=== PATIENT | male | born 1960 | race Caucasian/White ===

== ENCOUNTER 2020-05-26 03:06 | Emergency (ER) | payer OTHER ==
[~2020-05-26] VITALS: Ht 172.7 cm; Wt 74.8 kg
[2020-05-26 03:30] LABS: HEMATOCRIT 40.8 % (42.0-52.0); MCH 31.6 pg (26.0-34.0); MCHC 34.4 g/dL (28.0-37.0); PLATELET COUNT 217 thou/uL (150-400); RBC 4.44 mil/uL (4.50-6.00); RDW 13.1 % (10.5-14.5)
[2020-05-26 03:35] LABS: URINE BILIRUBIN 1+ (Negative); URINE BLOOD 2+ (Negative); URINE CLARITY CLEAR; URINE COLOR YELLOW; URINE GLUCOSE-RANDOM* NEGATIVE (Negative); URINE KETONES 1+ (Negative); URINE LEUKOCYTES-REFLEX NEGATIVE (Negative); URINE NITRITE-REFLEX NEGATIVE (Negative); URINE PROTEIN (DIPSTICK) TRACE (Negative); URINE SPECIFIC GRAVITY 1.025 (1.005-1.035)
[2020-05-26 03:40] LABS: ANION GAP 14 mmol/L (7-16); BUN 32 mg/dL (7-18); CALCIUM 8.5 mg/dL (8.5-10.1); CHLORIDE 99 mmol/L (98-107); CO2 22 mmol/L (21-32); CREATININE 1.5 mg/dL (0.7-1.3); GLUCOSE 134 mg/dL (74-106); POTASSIUM 3.4 mmol/L (3.5-5.1); SODIUM 135 mmol/L (136-145)
[2020-05-26 03:41] LABS: BACTERIA-REFLEX 1-9 Few /HPF (None Seen); CASTS None Seen /LPF (None Seen); CRYSTALS None Seen /LPF (None Seen); MUCUS 0-3 Light strn/LPF (None Seen); SQUAMOUS 0-3 Few /LPF (0-3); URINE WBC-REFLEX 0-5 Rare /HPF (0-5)
[2020-05-26 03:44] LABS: AMP/METHAMP POSITIVE (Negative); BARBITURATES Negative (Negative); BENZODIAZEPINES Negative (Negative); COCAINE Negative (Negative); METHADONE Negative (Negative); OPIATES Negative (Negative); PCP Negative (Negative)
[2020-05-26 03:51] LABS: ALBUMIN 3.7 g/dL (3.4-5.0); LIPASE 210 U/L (73-393); SGOT 26 U/L (15-37); SGPT 34 U/L (30-65); TOTAL BILIRUBIN 0.8 mg/dL (0.2-1.0); TOTAL PROTEIN 7.1 g/dL (6.4-8.2); TROPONIN-I <0.06 ng/mL (<0.06)
[2020-05-26 04:36] LABS: ABSOLUTE NEUTROPHILS 2.6 thou/uL (1.4-8.2)
[2020-05-26 04:37] LABS: PLATELET ESTIMATE NORMAL
--- NOTE | 2020-05-26 08:12 | EKG ---
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
[2020-05-26 08:30] VITALS: BP 121/80
== END 2020-05-26 08:40 | disposition home or self-care (01) ==
LOC: ER 03:06
PROVIDERS: Emergency Medicine
DX: F15.10 Other stimulant abuse, uncomplicated (principal); R07.9 Chest pain, unspecified; R41.0 Disorientation, unspecified; R45.1 Restlessness and agitation; F12.90 Cannabis use, unspecified, uncomplicated; F17.210 Nicotine dependence, cigarettes, uncomplicated

== ENCOUNTER 2020-06-26 12:06 | Emergency (ER) | payer OTHER ==
[~2020-06-26] VITALS: Ht 172.7 cm; Wt 70.3 kg
[2020-06-26 12:28] LABS: HEMOGLOBIN 12.5 gm/dL (14.0-18.0)
[2020-06-26 12:30] LABS: ABSOLUTE NEUTROPHILS 3.1 thou/uL (1.4-8.2); BASOPHILS 0.2 % (0.0-2.0); EOSINOPHILS 3.5 % (0.0-3.0); HEMATOCRIT 36.1 % (42.0-52.0); LYMPHOCYTES 26.3 % (24.0-44.0); MCH 32.1 pg (26.0-34.0); MCHC 34.6 g/dL (28.0-37.0); MCV 92.7 fL (80.0-100.0); MONOCYTES 9.1 % (1.0-8.0); PLATELET COUNT 232 thou/uL (150-400); POLYS 60.9 % (36.0-66.0); RBC 3.89 mil/uL (4.50-6.00); RDW 13.1 % (10.5-14.5); WBC 5.1 thou/uL (4.0-11.0)
[2020-06-26 12:31] LABS: ANION GAP 10 mmol/L (7-16); BUN 26 mg/dL (7-18); CALCIUM 8.6 mg/dL (8.5-10.1); CHLORIDE 101 mmol/L (98-107); CO2 25 mmol/L (21-32); CREATININE 1.3 mg/dL (0.7-1.3); GLUCOSE 151 mg/dL (74-106); POTASSIUM 3.9 mmol/L (3.5-5.1); SODIUM 136 mmol/L (136-145)
[2020-06-26 12:41] LABS: ALBUMIN 3.4 g/dL (3.4-5.0); SGOT 21 U/L (15-37); SGPT 25 U/L (30-65); TOTAL BILIRUBIN 0.4 mg/dL (0.2-1.0); TOTAL PROTEIN 7.2 g/dL (6.4-8.2); TROPONIN-I <0.06 ng/mL (<0.06)
[2020-06-26 13:27] LABS: URINE BILIRUBIN NEGATIVE (Negative); URINE BLOOD NEGATIVE (Negative); URINE CLARITY CLEAR; URINE COLOR YELLOW; URINE GLUCOSE-RANDOM* NEGATIVE (Negative); URINE KETONES NEGATIVE (Negative); URINE LEUKOCYTES-REFLEX NEGATIVE (Negative); URINE NITRITE-REFLEX NEGATIVE (Negative); URINE PROTEIN (DIPSTICK) NEGATIVE (Negative); URINE SPECIFIC GRAVITY 1.025 (1.005-1.035); URINE UROBILINOGEN 0.2 E.U./dl (0.2-1.0)
[2020-06-26 13:36] LABS: AMP/METHAMP POSITIVE (Negative); BARBITURATES Negative (Negative); BENZODIAZEPINES Negative (Negative); COCAINE Negative (Negative); METHADONE Negative (Negative); OPIATES Negative (Negative); PCP Negative (Negative)
[2020-06-26 14:59] VITALS: BP 128/80
--- NOTE | 2020-06-28 08:14 | EKG ---
[facility] [place] [address] ELECTROCARDIOGRAM REPORT Name: ESTEFANIA LAMA [id number] Admission: 06/26/20 Attend Phys: Discharge: 06/26/20 Date of : 60 Report #: [id number] THIS REPORT FOR: cc: FAM - No family physician/PCP FAM - No family physician/PCP Dave Ayoub MD [facility] THIS REPORT FOR: //name// [facility] ED Test Date: 2020-06-26 Test Time: 12:07:57 Pat Name: ESTEFANIA LAMA Department: Room: Gender: Senior Clinical Research Scientist: SULTANA : 1960 Requested By: Killian Looney Order Number: [id number] MD: Dave Ayoub Measurements Intervals [place] Rate: 90 P: 75 WV: 159 QRS: 80 QRSD: 88 T: 46 QT: 322 QTc: 394 Interpretive Statements Sinus rhythm Normal tracing Compared to ECG 05/26/2020 03:19:32 Sinus tachycardia no longer present Electronically Signed On 06-28-2020 8:14:26 CDT by Dave Ayoub [email or web address] <ELECTRONICALLY SIGNED> By: Dave Ayoub MD, FAC 06/28/20813 1207 06 Dave Ayoub MD, [facility] /EPI
== END 2020-06-26 15:00 | disposition home or self-care (01) ==
LOC: ER 12:06
PROVIDERS: Emergency Medicine; Physician Assistant
DX: R00.2 Palpitations (principal); F41.9 Anxiety disorder, unspecified; M06.9 Rheumatoid arthritis, unspecified; F17.210 Nicotine dependence, cigarettes, uncomplicated